=== PATIENT | female | born 1965 | race Caucasian/White ===

== ENCOUNTER → 2024-01-17 | Outpatient (CLI) | payer BC ==
--- NOTE | 2024-01-17 15:56 | XR ---
EXAMINATION TYPE: XR foot complete bilateral DATE OF EXAM: 01/17/2024 3:45 PM CLINICAL INDICATION: Female, 59 years old with history of [id number] FOOT PAIN; [facility] COMPARISON: None TECHNIQUE: XR foot complete bilateral examined in the AP, oblique, and lateral projections. FINDINGS: No evidence of fracture bilaterally. There is severe degeneration of the first digit metatarsal phala ngeal joint bilaterally with joint space narrowing and osteophyte formation. Additional mild degenera tion with joint space narrowing osteophyte formation throughout the remainder of the foot. IMPRESSION: 1. No evidence of acute fracture. 2. Severe first digit metatarsophalangeal joint degeneration with joint space narrowing and osteophy te formation bilaterally. Additional mild Degeneration changes throughout the joints of the foot. [facility], , 01/17/2024 3:53 PM
== END | disposition home or self-care (01) ==
LOC: RADXRYALE 15:33
PROVIDERS: ATTEND Family Medicine
DX: M19.071 Primary osteoarthritis, right ankle and foot (principal); M19.072 Primary osteoarthritis, left ankle and foot

== ENCOUNTER 2024-09-03 13:36 | Emergency (ER) | payer BC ==
--- NOTE | 2024-09-03 13:56 | ED ---
General Adult HPI <Prabhu Barnes - Last Filed: 09/03/24 13:52> <Lit Ferrari - Last Filed: 09/03/24 17:13> - General Stated complaint: Lightheadedness, vomiting - History of Present Illness Initial comments: Quick note: 51-year-old female with no significant past medical history presents to the emergency department dizziness and posterior head pain. Patient denies any history of headache. States that she feels like her head feels heavy denies any extremity symptoms. No fever chills or night sweats. (Prabhu Barnes) 51-year-old female presenting with chief complaint of dizziness, room spinning sensation. She has mild occipital headache. She has no chest pain no abdominal pain. She has nausea and dry heaving. She denies fever. She denies focal numbness or weakness. She has remote history of vertigo. (Lit Ferrari) - Related Data Previous Rx's Medication Instructions Recorded Meclizine [Antivert] 25 mg PO TID PRN #20 tab 03/26/15 Meclizine [Antivert] 25 mg PO TID PRN #30 tab 09/03/24 Allergies Allergy/AdvReac Type Severity Reaction Status Date / Time No Known Allergies Allergy Verified 09/03/24 13:57 Review of Systems ROS Other: All systems not noted in ROS Statement are negative. <Prabhu Barnes - Last Filed: 09/03/24 13:52> ROS Other: All systems not noted in ROS Statement are negative. <Lit Ferrari - Last Filed: 09/03/24 17:13> ROS Statement: Those systems with pertinent positive or pertinent negative responses have been documented in the HPI. Past Medical History Past Medical History: No Reported History History of Any Multi-Drug Resistant Organisms: None Reported Past Surgical History: No Surgical Hx Reported Past Psychological History: No Psychological Hx Reported Past Alcohol Use History: None Reported Past Drug Use History: None Reported <Prabhu Barnes - Last Filed: 09/03/24 13:52> General Exam <Prabhu Barnes - Last Filed: 09/03/24 13:52> General appearance: alert, in no apparent distress Head exam: Present: atraumatic, normocephalic Eye exam: Present: normal appearance, PERRL ENT exam: Present: normal exam Neck exam: Present: normal inspection. Absent: tenderness, meningismus Respiratory exam: Present: normal lung sounds bilaterally. Absent: respiratory distress Cardiovascular Exam: Present: regular rate, normal rhythm GI/Abdominal exam: Present: soft. Absent: distended, tenderness, guarding Extremities exam: Present: normal inspection, normal capillary refill. Absent: pedal edema Neurological exam: Present: alert, oriented X3, CN II-XII intact, other (No focal neurologic findings, no ataxia). Absent: motor sensory deficit Psychiatric exam: Present: normal affect, normal mood Skin exam: Present: warm, dry, intact, normal color <Lit Ferrari - Last Filed: 09/03/24 17:13> - General Exam Comments Initial Comments: General: Well-appearing, nontoxic, mild distress secondary dizziness Head: Normocephalic, atraumatic Eyes: PERRLA, EOMI ENT: Airway patent Chest: Nonlabored breathing Skin: No visual rash, normal skin tone Neuro: Alert and oriented 3 Musculoskeletal: No gross abnormalities (Prabhu Barnes) Course <Lit Ferrari - Last Filed: 09/03/24 17:13> Vital Signs 09/03/24 13:52 Temperature 97.8 F Pulse Rate 61 Respiratory 16 Rate Blood Pressure 109/71 O2 Sat by Pulse 99 Oximetry - Reevaluation(s) Reevaluation #1: 09/03/24 17:10 Reevaluated, feeling significantly better, no further vomiting, dizziness improved (Lit Ferrari) Medical Decision Making - Lab Data Result diagrams: 09/03/24 15:29 09/03/24 15:29 <Lit Ferrari - Last Filed: 09/03/24 17:13> - Medical Decision Making Was pt. sent in by a medical professional or institution (, PA, PANTOMIMIST, urgent care, hospital, or longterm...) When possible be specific @ -No Did you speak to anyone other than the patient for history (EMS, parent, family, police, friend...)? What history was obtained from this source @ -No Did you review nursing and triage notes (agree or disagree)? Why? @ -I reviewed and agree with nursing and triage notes Were old charts reviewed (outside hosp., previous admission, EMS record, old EKG, old radiological studies, urgent care reports/EKG's, longterm records)? Report findings @ -No old charts were reviewed Differential Dizziness: Benign paroxysmal positional Vertigo, Meniere's disease, otitis media, acoustic neuroma, vertebrobasilar insufficiency, cerebellar stroke, encephalitis, hypovolemic, arrhythmia, coronary artery syndrome, anemia, this is not meant to be an all-inclusive list EKG interpreted by me (3pts min.). @ -Sinus bradycardia rate of 57, [place] interval 140, QRS duration 82, QTc [address] segment elevation. X-rays interpreted by me (1pt min.). @ -None done CT interpreted by me (1pt min.). @ -CT brain negative for intracranial hemorrhage or mass effect U/S interpreted by me (1pt. min.). @ -None done What testing was considered but not performed or refused? (CT, X-rays, U/S, labs)? Why? @ -None What meds were considered but not given or refused? Why? @ -None Did you discuss the management of the patient with other professionals (professionals i.e. , PA, PANTOMIMIST, lab, RT, psych nurse, social media senior associate, operations clerk, teacher, targeting acquisition officer, sample case porter)? Give summary @ -No Was smoking cessation discussed for >3mins.? @ -No Was critical care preformed (if so, how long)? @ -No Were there social determinants of health that impacted care today? How? (Homelessness, low income, unemployed, alcoholism, drug addiction, transportation, low edu. Level, literacy, decrease access to med. care, fci, rehab)? @ -No Was there de-escalation of care discussed even if they declined (Discuss DNR or withdrawal of care, Hospice)? DNR status @ -No What co-morbidities impacted this encounter? (DM, HTN, Smoking, COPD, CAD, Cancer, CVA, ARF, Chemo, Hep., AIDS, mental health diagnosis, sleep apnea, morbid obesity)? @ -None Was patient admitted / discharged? Hospital course, mention meds given and route, prescriptions, significant lab abnormalities, going to OR and other perti nent info. @ -[89-year-old female with room spinning sensation. There is no nystagmus, no ataxia, no focal neurologic findings, head CT is unremarkable. Patient is in sinus bradycardia. She has a normal CBC, normal CMP. After fluids, Zofran, meclizine she is feeling significantly better nearly completely resolved symptoms no vomiting. Patient has had postnasal drip and has had some chronic e ar issues in which she is seeing ENT. I do recommend she follows again with ENT. She will take meclizine and maintain hydration. Undiagnosed new problem with uncertain prognosis? @ -No Drug Therapy requiring intensive monitoring for toxicity (Heparin, Nitro, Insulin, Cardizem)? @ -No Were any procedures done? @ -No Diagnosis/symptom? @ -Vertigo Acute, or Chronic, or Acute on Chronic? @Acute Uncomplicated (without systemic symptoms) or Complicated (systemic symptoms)? @ -Default Side effects of treatment? @ -No Exacerbation, Progression, or Severe Exacerbation? @ -No Poses a threat to life or bodily function? How? (Chest pain, [place], [place], pneumonia, PE, COPD, DKA, ARF, appy, cholecystitis, CVA, Diverticulitis, Homicidal, Suicidal, threat to staff... and all critical care pts) @ -No (Lit Ferrari) - Lab Data Lab Results 09/03/24 09/03/24 Range/Units 15:29 15:29 WBC 10.22 H (4.50-10.00) 10*3/uL RBC 4.72 (4.10-5.20) 10*6/uL Hgb 15.0 (12.0-15.0) g/dL Hct 43.6 (37.2-46.3) % MCV 92.4 (80.0-97.0) fL MCH 31.8 (27.0-32.0) pg MCHC 34.4 (32.0-37.0) g/dL Plt Count 255 (140-440) 10*3/uL MPV 10.6 (9.5-12.2) fL Immature Gran % (Auto) 0.3 % Neutrophils % 76.9 % Lymphocytes % 18.4 % Monocytes % 3.2 % Eosinophils % 0.4 % Basophils % 0.8 % Immature Gran # 0.03 (0.00-0.04) 10*3/uL Neutrophils # 7.86 H (1.80-7.70) 10*3/uL Lymphocytes # 1.88 (0.90-5.00) 10*3/uL Monocytes # 0.33 (0.20-1.00) 10*3/uL Eosinophils # 0.04 (0.04-0.35) 10*3/uL Basophils # 0.08 (0.00-0.10) 10*3/uL Sodium 141 (137-145) mmol/L Potassium 4.5 (3.5-5.1) mmol/L Chloride 104 (98-107) mmol/L Carbon Dioxide 31 H (22-30) mmol/L Anion Gap 6 mmol/L BUN 17 (7-17) mg/dL Creatinine 0.52 (0.52-1.04) mg/dL Est GFR (CKD-EPI)AfAm >90 (>60 ml/min/1.73 sqM) Est GFR (CKD-EPI)NonAf >90 (>60 ml/min/1.73 sqM) Glucose 110 H (74-99) mg/dL Calcium 10.2 (8.4-10.2) mg/dL Magnesium 2.0 (1.6-2.3) mg/dL Total Bilirubin 0.7 (0.2-1.3) mg/dL AST 29 (14-36) U/L ALT 35 H (4-34) U/L Alkaline Phosphatase 59 (38-126) U/L Total Protein 7.1 (6.3-8.2) g/dL Albumin 4.6 (3.5-5.0) g/dL Disposition <Prabhu Barnes - Last Filed: 09/03/24 13:52> Is patient prescribed a controlled substance at d/c from ED?: No Time of Disposition: 17:12 <Lit Ferrari - Last Filed: 09/03/24 17:13> Clinical Impression: Vertigo Disposition: HOME SELF-CARE Condition: Good Instructions (If sedation given, give patient instructions): Dizziness (ED) Prescriptions: Meclizine [Antivert] 25 mg PO TID PRN #30 tab PRN Reason: Vertigo Referrals: Mark Jones, [Primary Care Provider] - 1-2 days
--- NOTE | 2024-09-03 14:19 | CT ---
EXAMINATION TYPE: CT brain wo con DATE OF EXAM: 09/03/2024 2:10 PM COMPARISON: None. CLINICAL INDICATION: Female, 59 years old with history of posterior headache, Posterior LEES, N/V. TECHNIQUE: Brain: Axial CT images of the brain were obtained with coronal and sagittal reformats created and rev iewed. Contrast used: None. Oral contrast used: None. CT DLP: 1082.4 mGycm, Automated exposure control for dose reduction was used. FINDINGS: Brain: Extra-axial spaces: No abnormal extra-axial fluid collections. Ventricular system: Within normal limits Cerebral parenchyma: No acute intraparenchymal hemorrhage or mass effect. The euceda-white junction is well differentiated. Scattered hypoattenuating areas are seen within the white matter. Cerebellum: Unremarkable. Mass effect: No evidence of midline shift. Intracranial vasculature: unremarkable Soft tissues: Normal. Calvarium/osseous structures: No depressed skull fracture. Paranasal sinuses and mastoid air cells: Mild scattered paranasal sinus disease. Visualized orbits: Orbital contents are intact. IMPRESSION: No acute intracranial process. [facility], , 09/03/2024 2:16 PM
[2024-09-03] MEDS: ONDANSETRON 4 MG/2 ML VIAL IVP STA (15:38)
[2024-09-03] MEDS: SODIUM CHLORIDE 0.9% 1,000 ML IV STA (15:39)
[2024-09-03] MEDS: MECLIZINE 12.5 MG TAB PO STA (15:40)
[2024-09-03 15:42] LABS: Basophils # (A) 0.08 10*3/uL (0.00-0.10); Basophils % (A) 0.8 %; Eosinophils # (A) 0.04 10*3/uL (0.04-0.35); Eosinophils % (A) 0.4 %; HCT 43.6 % (37.2-46.3); Lymphocytes # (A) 1.88 10*3/uL (0.90-5.00); Lymphocytes % (A) 18.4 %; MCH 31.8 pg (27.0-32.0); MCHC 34.4 g/dL (32.0-37.0); MCV 92.4 fL (80.0-97.0); Mean Platelet Volume 10.6 fL (9.5-12.2); Monocytes # (A) 0.33 10*3/uL (0.20-1.00); Monocytes % (A) 3.2 %; Neutrophils # (A) 7.86 10*3/uL (1.80-7.70); Neutrophils % (A) 76.9 %; Platelet Count 255 10*3/uL (140-440); RBC 4.72 10*6/uL (4.10-5.20); RDW 12.2 % (11.5-14.5); WBC 10.22 10*3/uL (4.50-10.00)
[2024-09-03 15:56] LABS: ALT 35 U/L (4-34); AST 29 U/L (14-36); African American GFR (CKD) >90 (>60 ml/min/1.73 sqM); Albumin 4.6 g/dL (3.5-5.0); Alkaline Phosphatase 59 U/L (38-126); Anion Gap 6 mmol/L; Blood Urea Nitrogen 17 mg/dL (7-17); Calcium 10.2 mg/dL (8.4-10.2); Carbon Dioxide 31 mmol/L (22-30); Chloride 104 mmol/L (98-107); Glucose 110 mg/dL (74-99); Non-African American GFR(CKD) >90 (>60 ml/min/1.73 sqM); Potassium 4.5 mmol/L (3.5-5.1); Sodium 141 mmol/L (137-145); Total Bilirubin 0.7 mg/dL (0.2-1.3); Total Protein 7.1 g/dL (6.3-8.2)
[2024-09-03 17:27] VITALS: BP 139/79; PULSE 88; RESP 18; TEMP 97.6
== END 2024-09-03 17:26 | disposition home or self-care (01) ==
LOC: EC 13:36
DX: R42 Dizziness and giddiness (principal)
CPT/HCPCS: 36415; 93005; 80053; 83735; 85025; 70450; 99284; 96374; 96361; J2405